=== PATIENT | male | born 1980 | race Caucasian/White ===

== ENCOUNTER 2020-01-22 08:17 | Outpatient (CLI) | payer BC, SELFPAY ==
--- NOTE | ~2020-01-22 | XR_ITS ---
XR abdomen/kub 1V DATE: 01/22/2020 08:28 INDICATION: Left ureteral stone TECHNIQUE: AP projection, 2 views COMPARISON: None FINDINGS: Surgical clips overlie the right upper quadrant, likely due to cholecystectomy. There is a transitional first sacral vertebra with bilateral pseudoarthrosis at S1-S2. Faint calcifications are suggested overlying the lower pole left kidney suggesting probable left neph rolithiasis. An approximately 2 x 5 mm calcification overlies the approximate position of the distal left ureter; distal left ureteral calcified calculus is suggested. Noncontrast CT abdomen pelvis examination would be more definitive for evaluation of urinary tract st ones. No evidence of bowel obstruction. IMPRESSION: Suspected distal left ureteral calcified calculus and nonobstructing lower pole left castillo l faintly calcified stones; noncontrast CT abdomen pelvis would be more definitive Reviewed, dictated and finalized at [facility]. Reviewed, dictated and finalized at [facility]. IMPRESSION: Suspected distal left ureteral calcified calculus and nonobstructin g lower pole left renal faintly calcified stones; noncontrast CT abdomen pelvis would be more definitive
== END 2020-01-22 08:18 | disposition home or self-care (01) ==
PROVIDERS: PCP Physician Assistant; Visit Provider Urology
DX: N20.1 Calculus of ureter (principal)
CPT/HCPCS: 74018

== ENCOUNTER 2020-02-12 08:14 | Outpatient (CLI) | payer BC, SELFPAY ==
--- NOTE | ~2020-02-12 | XR_ITS ---
XR abdomen/kub 1V DATE: 02/12/2020 08:34 INDICATION: Left ureteral stone follow-up TECHNIQUE: AP projection, 2 views COMPARISON: 01/22/2020 KUB FINDINGS: Previously reported calcified stone overlying the distal left ureter on 01/22/2020 is no long er evident Lower pole left renal calcified stones are again noted. Status post cholecystectomy. No evidence of bowel obstruction. The psoas shadows are intact. No visceromegaly is evident. Transitional first sacral vertebra. IMPRESSION: Resolution of distal left ureteral calcified calculus since 01/22/2020 Left nephrolithiasis Status post cholecystectomy Reviewed, dictated and finalized at [facility]. Reviewed, dictated and finalized at [facility]. IMPRESSION: Resolution of distal left ureteral calcified calculus since 0 Left nephrolithiasis Status post cholecystectomy
== END 2020-02-12 08:15 | disposition home or self-care (01) ==
PROVIDERS: Visit Provider Urology
DX: N20.0 Calculus of kidney (principal); Z90.49 Acquired absence of other specified parts of digestive tract
CPT/HCPCS: 74018

== ENCOUNTER 2020-04-22 08:51 | Outpatient (CLI) | payer BC, SELFPAY ==
--- NOTE | ~2020-04-22 | XR_ITS ---
EXAMINATION: XR abdomen/kub 1V INDICATION: Left-sided kidney stone TECHNIQUE: Supine views of the abdomen were obtained on 2 radiographs. COMPARISON: 02/12/2020 FINDINGS: A 4 mm stone projects in the lower pole of the left kidney. There is a 3 mm calcification i n the left pelvis not definitely seen on the prior examination at the expected location of the left u reterovesicular junction. A left pelvic phlebolith is noted. The bowel gas pattern is normal. Surgica l clips in the right upper quadrant are likely from prior cholecystectomy. IMPRESSION: 1. New left pelvic calcification which could be at the left ureterovesicular junction. Correlate for left flank pain. 2. Stable left nephrolithiasis. Reviewed, dictated and finalized at location [facility]. IMPRESSION: 1. New left pelvic calcification which could be at the left ureterovesicular ju nction. Correlate for left flank pain. 2. Stable left nephrolithiasis.
== END 2020-04-22 08:52 | disposition home or self-care (01) ==
LOC: ANHIMG 09:00
PROVIDERS: PCP Physician Assistant; Visit Provider Urology
DX: N20.0 Calculus of kidney (principal)
CPT/HCPCS: 74018

== ENCOUNTER 2020-09-09 16:02 | Outpatient (CLI) | payer BC, SELFPAY ==
--- NOTE | ~2020-09-09 | CT_ITS ---
EXAMINATION: CT abdomen pelvis wo con DATE: 09/09/2020 16:31 INDICATION: Left flank pain today. Blood in urine for 2 days. TECHNIQUE: Computed tomography (CT) of the abdomen and pelvis was performed without intravenous contr ast. Automated exposure control and iterative reconstruction technique were employed. Exam dose: 700 .93 mGy-cm total exam DLP. COMPARISON: 09/09/2020 KUB FINDINGS: The lung bases are clear of infiltrate or consolidation. Normal heart size. No pericardial or pleural effusion. Status post cholecystectomy. Diffuse hepatic steatosis. No hepatic, splenic, pancreatic, and adrenal or renal space-occupying mass lesion is evident. No right urinary tract calculus or right-sided hydroureteronephrosis. Approximately 3.5 mm nonobstructing upper pole left renal calculus. Approximately 5.2 mm lower pole nonobstructing left renal calculus. 5.6 mm wide 9.5 mm tall proximal left ureteral calculus at the L4 level, with proximal moderate left hydroureteronephrosis and mild perinephric stranding and pyelosinus extravasation. The urinary bladder is unremarkable. Minimal prostate calcification. No bowel obstruction. Ileocecal valve is in the right upper quadrant, consistent with retained cecal mesentery. The appendix is not identified but there is no evidence of appendicitis. Normal caliber of the abdominal aorta. No intraperitoneal or retroperitoneal or pelvic mass lesion or adenopathy or ascites. No suspicious osteolytic or osteoblastic lesions are noted. IMPRESSION: 5.6 x 9.5 mm obstructing left ureteral calculus at L4 level, with proximal moderate left hydroureteronephrosis and mild perinephric stranding, pyelosinus extravasation 2. Nonobstructing left renal calculi Hepatic steatosis Status post cholecystectomy Reviewed, dictated and finalized at [facility]. Reviewed, dictated and finalized at location [facility]. EMENTATION SPECIALIST IMPRESSION: 5.6 x 9.5 mm obstructing left ureteral calculus at L4 level, with proximal moderate left hydroureteronephrosis and mild perinephric stranding, py elosinus extravasation 2. Nonobstructing left renal calculi Hepatic steatosis Status post cholecystectomy
--- NOTE | ~2020-09-09 | XR_ITS ---
EXAMINATION: XR abdomen/kub 1V DATE: 09/09/2020 16:21 INDICATION: Left kidney stone with hematuria TECHNIQUE: A supine view of the abdomen on 2 radiographs was obtained. COMPARISON: KUB dated 04/22/[address] dated 09/09/2020 FINDINGS: Minimal advancement of a 5 x 9 mm mid left ureteral stone which projects over the left transverse pro cess of L5. Additional 5 x 3 mm stone at the lower pole of the left kidney. A smaller stone at the up per pole of the left kidney seen on prior CT is unable to be clearly distinguished on the plain radio graphs. Cholecystectomy clips in the right upper quadrant. Normal bowel gas pattern. S1 is partially lumbarized. Visualized lung bases are clear. Heart size is normal. IMPRESSION: 1. Minimal advancement of a 9 x 5 mm stone in the mid left ureter. Reviewed, dictated and finalized at location . MILL OPERATOR FACING SAND
== END 2020-09-09 16:03 | disposition home or self-care (01) ==
PROVIDERS: PCP Physician Assistant; Visit Provider Urology
DX: N20.2 Calculus of kidney with calculus of ureter (principal); K76.0 Fatty (change of) liver, not elsewhere classified; K91.86 Retained cholelithiasis following cholecystectomy
CPT/HCPCS: 74018; 74176

== ENCOUNTER 2020-09-11 04:50 | Day surgery (SDC) | payer BC, SELFPAY ==
[2020-09-11] VITALS (8 sets, daily range): BP systolic 99–145; BP diastolic 60–111; PULSE 76–90; RESP 12–20; TEMP 36.1–36.6; O2SAT 87–98
--- NOTE | ~2020-09-11 | XR_ITS ---
EXAMINATION: XR abdomen/kub 1V DATE: 09/11/2020 12:06 INDICATION: Kidney stone. TECHNIQUE: A supine view of the abdomen on 2 radiographs was obtained. COMPARISON: CT abdomen and pelvis 09/09/2020 FINDINGS: There are no dilated loops of bowel. There are 2 stones in left kidney with the larger esvin uring 4 mm. There is a phlebolith in the pelvis. Surgical clips in the right upper quadrant are likel y from cholecystectomy. IMPRESSION: 1. Left kidney stones. Reviewed, dictated and finalized at location A. ERN GRADER SUPERVISOR IMPRESSION: 1. Left kidney stones.
--- NOTE | ~2020-09-11 | CT_ITS ---
EXAMINATION: CT abdomen pelvis wo con DATE: 09/11/2020 13:21 INDICATION: Left ureteral stone. TECHNIQUE: Computed tomography (CT) of the abdomen and pelvis was performed without intravenous contr ast. Automated exposure control and iterative reconstruction technique were employed. The dose-length product was 778.71 mGy-cm. COMPARISON: CT abdomen and pelvis 09/09/2020 FINDINGS: The visualized portions of the lung bases are clear without pneumonia or pleural effusion. The heart size is normal. No pericardial effusion. There is diffuse hepatic steatosis. There are sloan ges of cholecystectomy. The spleen, pancreas, adrenal glands, and right kidney are normal. There are 3 mm and 4 mm stones in left kidney. There is mild left hydronephrosis and hydroureter. There is a 5 mm stone in left ureter where it crosses the iliac vessels at the level of the sacrum. There are no d ilated loops of bowel. The appendix is not visualized. There are no pathologically enlarged lymph nod es. There is no free intraperitoneal fluid. There is mild lumbar spondylosis. IMPRESSION: 1. 5 mm stone in left ureter where it crosses the iliac vessels with mild left hydronephrosis and hyd roureter. 2. Nonobstructing left kidney stones. Reviewed, dictated and finalized at location A. ORK ENGINEER ADMINISTRATOR IMPRESSION: 1. 5 mm stone in left ureter where it crosses the iliac vessels with mild left hydronephrosis and hydroureter. 2. Nonobstructing left kidney stones.
--- NOTE | 2020-09-11 06:11 | WPDHPUPDATE1 ---
History and Physical Update Update Date/Time: 09/11/20 06:11 History and Physical has been reviewed, including an updated exam of the patient. There are NO changes in the patient's condition. Risks, benefits, and alternatives have been discussed and questions answered. Patient agrees to proceed with procedure.
--- NOTE | 2020-09-11 12:09 | ECG_ITS ---
Measurements Intervals [place] Rate: 84 P: 13 WI: 135 QRS: 23 QRSD: 98 T: 16 QT: 356 QTc: 421 Interpretive Statements SINUS RHYTHM BASELINE WANDER- I, II, III, AVR, AVL, AVF, V4 NORMAL ECG Electronically Signed On 09-11-2020 14:20:33 SEWAGE RETICULATION DRAFTING OFFICER by Robson Adams D.O.
[2020-09-11] MEDS: LACTATED RINGERS 1,000 ML 30 ML IV CONT ×2 (12:30→15:28)
[2020-09-11 13:01] LABS: Anion Gap 9 mmol/L (8-16); Blood Urea Nitrogen 17 mg/dL (9-20); Calcium 8.9 mg/dL (8.4-10.2); Carbon Dioxide 31 mmol/L (22-30); Chloride 101 mmol/L (98-107); Estimated Glomerular Filt Rate > 60; Glucose 125 mg/dL (75-110); Potassium 3.9 mmol/L (3.4-5.0); Sodium 141 mmol/L (137-145)
[2020-09-11 13:08] LABS: INR 0.9
[2020-09-11 13:09] LABS: Partial Thromboplastin Time 28.4 SECONDS (22.3-36.8)
--- NOTE | 2020-09-11 13:42 | WPDANESEPPF ---
Anes - Initial Pre Proc Eval Procedure: Operation Date: 09/11/20 13:30 Proposed Procedures p Left Ureteral Extracorporeal Shock Wave Lithotripsy - Michele Stovall MD Date/Time: 09/11/20 13:42 Surgeon: Michele Stovall MD Pre Op Diagnosis: Left Ureteral Stone Patient Data Age: 40 Gender: M Height: 5 ft 10 in Weight: 120.6 kg Last Vital Signs Temp 97.8 F 09/11/20 12:05 Pulse 86 09/11/20 12:05 Resp 20 09/11/20 12:05 BP 145/93 H 09/11/20 12:05 Pulse Ox 98 09/11/20 12:05 Allergies Allergy/AdvReac Type Severity Reaction Status Date / Time No Known Allergies Allergy Verified 09/11/20 13:03 Home Medications Medication Instructions Recorded Confirmed Type allopurinol [Zyloprim] 100 mg PO DAILY 09/11/20 09/11/20 History atorvastatin [Lipitor] 40 mg PO DAILY 09/11/20 09/11/20 History benazepril [Lotensin] 10 mg PO DAILY 09/11/20 09/11/20 History dulaglutide [Trulicity] 1.5 mg SUBCUT WEEKLY 09/11/20 09/11/20 History ergocalciferol (vitamin D2) 1,250 mcg PO WEEKLY 09/11/20 09/11/20 History [Vitamin D2] fenofibrate nanocrystallized 48 mg PO DAILY 09/11/20 09/11/20 History [Tricor] glimepiride [Amaryl] 2 mg PO DAILY 09/11/20 09/11/20 History metformin [Glucophage] 1,000 mg PO DAILY 09/11/20 09/11/20 History nadolol [Corgard] 80 mg PO BID 09/11/20 09/11/20 History sertraline [Zoloft] 100 mg PO DAILY 09/11/20 09/11/20 History Laboratory Tests 09/11/20 09/11/20 09/11/20 12:35 12:35 12:35 PT 13.0 Seconds Seconds Cancelled (11.1-14.7) INR 0.9 Cancelled APTT 28.4 SECONDS SECONDS (22.3-36.8) Sodium 141 mmol/L mmol/L (137-145) Potassium 3.9 mmol/L mmol/L (3.4-5.0) Chloride 101 mmol/L mmol/L (98-107) Carbon Dioxide 31 mmol/L H mmol/L (22-30) Anion Gap 9 mmol/L mmol/L (8-16) BUN 17 mg/dL mg/dL (9-20) Creatinine 1.00 mg/dL mg/dL (0.7-1.3) Estim Creat Clear Calc Not Reportable Estimated GFR > 60 (59 - ) Glucose 125 mg/dL H mg/dL (75-110) Calcium 8.9 mg/dL mg/dL (8.4-10.2) Patient hx anesthesia problems: none Family hx anesthesia problems: none FOR[facility]LY [facility], [facility] Past Medical History Medical History (Updated 09/11/20 @ 13:42 by Mark Brizuela MD) Diabetes Hyperlipidemia Hypertension HARESH (obstructive sleep apnea) Anes - Eval Final PreProcedure Day of Procedure 09/11/20 13:42 Patient weight: obese Heart: regular rate and rhythm Lungs: clear to auscultation Airway: Mallampati scale class II Neurological: alert and oriented Last oral intake: >/= 8 hours ASA classification: III Emergent: no Anesthetic plan: proceed Anesthesia type and monitoring: general LMA and standard monitoring Informed Consent: The patient's anesthetic plan and its attendant risks and benefits were discussed with the patient/family/POA. Questions were solicited and answers provided to the satisfaction of the patient/family/POA.
[2020-09-11] MEDS: ceFAZolin 2 GM/D5W 50 ML 2 GM/50 ML BAG IVPB (13:50)
[2020-09-11 13:54] LABS: Glucose Point of Care 115 (65-105)
--- NOTE | 2020-09-11 14:00 | PM.PROC ---
Procedure Note - Detailed Date of procedure: 09/11/20 Pre-op diagnosis: Left Ureteral Stone Post-op diagnosis: same Procedure performed: Left ureteral ESWL Description of procedure: The patient was brought to the operative suite where he was placed in the supine position on the Dornier lithotripsy table. The focal point of the lithotripter was placed at a 6-7mm left mid-ureteral calculus. A total of 3000 shocks were delivered at a power setting of 5. There appeared to be good fragmentation of the stone. The patient tolerated the procedure well and was taken to the recovery room in good condition. Anesthesia: GLMA Surgeon: Michele Stovall MD Estimated blood loss (mL): 0 Drains: No Packing: No Pathology: none sent Complications: No immediate complications Condition: stable Disposition: PACU
[2020-09-11 15:25] LABS: Glucose Point of Care 97 (65-105)
[2020-09-11] MEDS: oxyCODONE HCL (*CRX) 5 MG TAB IR PO (15:58)
== END 2020-09-11 16:30 | disposition home or self-care (01) ==
PROVIDERS: Anesthesiology; PCP Physician Assistant; Visit Provider Urology
PROC: (CPT 50590; principal; 2020-09-11 13:30)
DX: N20.1 Calculus of ureter (principal); I10 Essential (primary) hypertension; E78.5 Hyperlipidemia, unspecified; E11.9 Type 2 diabetes mellitus without complications; G47.33 Obstructive sleep apnea (adult) (pediatric); Z79.84 Long term (current) use of oral hypoglycemic drugs; E66.9 Obesity, unspecified; Z68.38 Body mass index [BMI] 38.0-38.9, adult
CPT/HCPCS: 50590; 36415; 74018; 74176; 80048; 85610; 85730; 93005; A9270; J0690; J2250; J2405; J2704; J3010; J7120